=== PATIENT | female | born 1970 | race Caucasian/White ===

== ENCOUNTER 2020-12-13 11:49 | Emergency (ER) | payer BC ==
[2020-12-13] MEDS ORDERED: Ketorolac Tromethamine 15 MG/ML VIAL ONE (13:26)
[2020-12-13 13:30] LABS: #Basophils 0.1 10x3/uL (0.0-0.2); #Monocytes 1.5 10x3/uL (0.0-1.1); #Neutrophils 8.8 10x3/uL (1.5-8.4); %Basophils 0.7 % (0.0-2.0); %Eosinophils 7.7 % (0.0-6.0); %Lymphocytes 11.1 % (18.0-47.0); %Monocytes 11.8 % (0.0-10.0); %Neutrophils 67.6 % (40.0-75.0); Hemoglobin 11.3 g/dL (12.0-15.5); Mean Corpuscular HGB CONC 31.9 g/dL (32.0-36.0); Mean Corpuscular Hemoglobin 29.6 pg (27.0-33.0); Mean Corpuscular Volume 92.7 fl (81.6-98.3); Mean Platelet Volume 8.4 fl (7.4-10.4); Platelet Count 443 10x3/uL (150-450); RBC Distribution Width 12.3 % (11.5-14.5); Red Blood Cell (RBC) Count 3.82 10x6/uL (3.90-5.03)
[2020-12-13 13:47] LABS: ALT (SGPT) 57 U/L (8-55); AST (SGOT) 38 U/L (5-34); Albumin 3.3 g/dL (3.5-5.0); Alkaline Phosphatase 167 U/L (40-110); Anion Gap 16 mmol/L (10-20); BUN (Urea Nitrogen) 13 mg/dL (9.8-20.1); Bilirubin, Total 0.3 mg/dL (0.2-1.2); Calc. Creatinine Clearance 0 mL/min (70-130); Calcium 8.7 mg/dL (7.8-10.44); Carbon Dioxide 23 mmol/L (22-29); Chloride 102 mmol/L (98-107); Globulin 3.3 g/dL (2.4-3.5); Glucose 96 mg/dL (70-105); Potassium 4.4 mmol/L (3.5-5.1); Protein, Total 6.6 g/dL (6.0-8.3); Sodium 137 mmol/L (136-145)
[2020-12-13] MEDS ORDERED: Piperacillin/Tazobactam 3.375 GM VIAL ONE (16:17)
== END 2020-12-13 18:22 | disposition short-term general hospital (02) ==
LOC: CSHERS 11:49
DX: J90 Pleural effusion, not elsewhere classified (principal)
CPT/HCPCS: 71260; 80053; 83880; 84484; 85025; 87040; 93005; 96365; 96367; 96375; J1885; J2543; J7030

== ENCOUNTER 2024-06-21 15:17 | Outpatient (CLI) | payer BC | END 2024-06-21 15:18 | disposition home or self-care (01) | LOC: CSHMAMMO 15:17 | PROVIDERS: ATTEND Family Medicine | DX: Z12.31 Encounter for screening mammogram for malignant neoplasm of breast (principal) | CPT/HCPCS: 77063; 77067 ==